=== PATIENT | male | born 1935 | race Caucasian/White ===

== ENCOUNTER 2016-12-12 14:55 | Outpatient (CLI) | payer MEDICARE, OTHER | END 2016-12-12 14:56 | disposition home or self-care (01) | DX: G90.9 Disorder of the autonomic nervous system, unspecified (principal) ==

== ENCOUNTER 2017-06-30 13:50 | Outpatient (CLI) | payer MEDICARE, OTHER | END 2017-06-30 13:51 | disposition EMS.NT | LOC: EMS 13:50 | PROVIDERS: ATTEND Surgery | DX: R53.83 Other fatigue (principal) ==

== ENCOUNTER 2018-01-05 13:53 | Outpatient (CLI) | payer MEDICARE, OTHER ==
--- NOTE | 2018-01-08 10:31 | Ultrasound Report ---
RIGHT LEG VENOUS DUPLEX: 01/05/2018 CLINICAL INDICATION: Edema. TECHNIQUE: Real-time sonographic vascular imaging was performed by the billing clerk through the right lower extremity utilizing both color flow and Doppler spectral analysis. Multiple food service sales representatives static images were saved for review. FINDINGS: A right lower extremity venous sonogram is performed revealing the common femoral, superficial femoral, profunda femoris, and popliteal veins to be adequately visualized without intraluminal defects. There is normal venous compression, augmentation, phasicity, and spontaneity of venous flow. In the calf, the visualized more cephalad portions of posterior tibial and peroneal veins are grossly compressible, without filling defects. IMPRESSION: NO EVIDENCE OF DEEP VENOUS THROMBOSIS. TD: 01/05/2018 17:59
== END 2018-01-05 13:54 | disposition home or self-care (01) ==
LOC: DI 13:53
PROVIDERS: ATTEND Internal Medicine
DX: R60.9 Edema, unspecified (principal)

== ENCOUNTER 2019-02-21 10:46 | Outpatient (CLI) | payer MEDICARE, OTHER ==
[2019-02-21 11:40] LABS: BASOPHILS # (AUTO) 0.1 10^3/uL (0.0-0.1); BASOPHILS % (AUTO) 0.9 %; EOSINOPHILS # (AUTO) 0.5 10^3/uL (0.0-0.7); EOSINOPHILS % (AUTO) 6.4 %; HGB - HEMOGLOBIN 13.9 g/dL (14.0-18.0); LYMPHOCYTES # (AUTO) 1.6 10^3/uL (1.5-3.5); LYMPHOCYTES % (AUTO) 18.9 %; MEAN CORPUSCULAR HEMOGLOBIN 31.4 pg (27.0-31.0); MEAN CORPUSCULAR HGB CONC 34.3 g/dL (32.0-36.0); MEAN CORPUSCULAR VOLUME 91.5 fL (80.0-94.0); MONOCYTES # (AUTO) 1.2 10^3/uL (0.0-1.0); MONOCYTES % (AUTO) 14.7 %; NEUTROPHILS % (AUTO) 59.1 %; PLT - PLATELET COUNT 158 10^3/uL (130-450); RED BLOOD COUNT 4.43 10^6/uL (4.70-6.10); WHITE BLOOD COUNT 8.4 x10^3/uL (4.8-10.8)
[2019-02-21 12:04] LABS: ALBUMIN/GLOBULIN RATIO 1.3 (1.0-2.2); ALKALINE PHOSPHATASE 80 IU/L (42-121); ALT ALANINE AMINOTRANSFERASE 13 IU/L (10-60); AST ASPARTATE AMINOTRANSFERASE 19 IU/L (10-42); BILIRUBIN,TOTAL 0.9 mg/dL (0.2-1.0); BUN - BLOOD UREA NITROGEN 29 mg/dL (6-20); CARBON DIOXIDE - CO2 24 mmol/L (21-32); CHLORIDE 105 mmol/L (101-111); CHOL/HDL RATIO 2.7 (<5.0); CHOLESTEROL 159 mg/dL; CREATININE 0.9 mg/dL (0.6-1.2); GFR - MDRD 81 (>89); GLUCOSE 115 mg/dL (70-100); HDL CHOLESTEROL 60 mg/dL; LDL CHOLESTEROL,CALCULATED 87 mg/dL; LDL/HDL RATIO 1.5 (<3.6); SODIUM 140 mmol/L (135-145); TOTAL PROTEIN 7.2 g/dL (6.7-8.2); VLDL CHOLESTEROL 12 mg/dL
[2019-02-21 13:05] LABS: BILIRUBIN,URINE NEGATIVE (NEGATIVE); GLUCOSE, URINE (UA) NEGATIVE (NEGATIVE); KETONES,URINE (UA) NEGATIVE (NEGATIVE); LEUKOCYTE ESTERASE, URINE NEGATIVE (NEGATIVE); NITRITE,URINE NEGATIVE (NEGATIVE); OCCULT BLOOD,URINE NEGATIVE (NEGATIVE); PROTEIN,URINE NEGATIVE (NEGATIVE); UROBILINOGEN,URINE 0.2 (NORMAL) E.U./dL (NORMAL)
[2019-02-21 13:07] LABS: CLARITY,URINE CLEAR (CLEAR)
[2019-02-22 19:43] LABS: HB2 TOTAL 15.9 g/dL; HEMOGLOBIN A1C 0.59 g/dL; HEMOGLOBIN A1C % 5.5 % (4.6-6.2)
== END 2019-02-21 10:47 | disposition home or self-care (01) ==
LOC: LAB 10:46
PROVIDERS: ATTEND Internal Medicine
DX: R60.9 Edema, unspecified (principal); R32 Unspecified urinary incontinence; I10 Essential (primary) hypertension; R73.01 Impaired fasting glucose; Z13.6 Encounter for screening for cardiovascular disorders; Z79.899 Other long term (current) drug therapy; J44.9 Chronic obstructive pulmonary disease, unspecified; R73.9 Hyperglycemia, unspecified; N40.0 Benign prostatic hyperplasia without lower urinary tract symptoms; R06.09 Other forms of dyspnea
CPT/HCPCS: 36415; 80053; 80061; 81001; 81003; 81599; 83036; 83721; 83880; 84153; 84443; 85025; 87086

== ENCOUNTER 2019-09-26 16:35 | Outpatient (CLI) | payer MEDICARE, OTHER ==
--- NOTE | 2019-09-26 20:31 | Ultrasound Report ---
Reason: TESTICULAR SWELLING Procedure Date: 09/26/2019 Accession Number: [id number] / [id number] Procedure: US - Testicle CPT Code: Final Report FULL RESULT: EXAM: SCROTAL ULTRASOUND EXAM DATE: 09/26/2019 07:22 PM. CLINICAL HISTORY: TESTICULAR SWELLING. COMPARISON: None available. TECHNIQUE: Real-time scanning was performed with static images obtained. Color-flow images were utilized. FINDINGS: Right: Testis: 3.9 x 3.0 x 2.8 cm. Normal size . Somewhat heterogeneous echotexture. No mass or calcification. Increased intratesticular blood flow. Epididymis: 0.7 x 0.9 x 0.8 cm. Increased in size and heterogeneous in appearance. Hyperemic on color Doppler. Nonspecific echogenic foci near the epididymal tail. Nonspecific small hypoechoic, nonvascular collection near the epididymal tail. Hydrocele: Small/moderate. Varicocele: None. Left: Testis: 4.6 x 2.2 x 2.2 cm. Normal size . Somewhat heterogeneous echotexture. No mass, calcification, or abnormal blood flow. Epididymis: 0.8 x 1.1 x 0.8 cm. Normal size and echotexture. No mass or abnormal blood flow. Simple appearing cyst at the epididymal head measuring 4 x 4 x 4 mm. Hydrocele: Small. Varicocele: None. IMPRESSION: No evidence of testicular torsion. Findings of infectious/inflammatory right epididymoorchitis with a small/moderate right hydrocele. Nonspecific heterogeneous hypoechoic collection near the right epididymal tail. A small intraglandular abscess is not entirely excluded. CAROL ANNA The call report notification system was initiated by Dr. Abad Gottlieb at 08:17 PM on 09/26/2019. The above call report findings were discussed with Thania Dubose by Dr. Abad Gottlieb at 08:31 PM on 09/26/2019.
== END 2019-09-26 16:36 | disposition home or self-care (01) ==
LOC: DI 16:35
PROVIDERS: ATTEND Internal Medicine
DX: N45.3 Epididymo-orchitis (principal); N43.3 Hydrocele, unspecified
CPT/HCPCS: 76870

== ENCOUNTER 2019-10-08 03:17 | Outpatient (CLI) | payer MEDICARE, OTHER | END 2019-10-08 03:18 | disposition EMS.NT | LOC: EMS 03:17 | PROVIDERS: ATTEND Surgery | DX: R53.1 Weakness (principal) ==

== ENCOUNTER 2019-10-17 11:06 | Outpatient (CLI) | payer MEDICARE, OTHER ==
--- NOTE | 2019-10-17 12:51 | XRAY Report ---
Reason: [id number] Procedure Date: 10/17/2019 Accession Number: [id number] / [id number] Procedure: XRS - Chest 1 View X-Ray CPT Code: 56996 Final Report FULL RESULT: EXAM: CHEST RADIOGRAPHY EXAM DATE: 10/17/2019 12:09 PM. CLINICAL HISTORY: Swallowed a hearing aid. COMPARISON: XR CHEST PA AND LAT 06/05/2009 1:54 PM. TECHNIQUE: 1 view. FINDINGS: Lungs/Pleura: Bronchial wall thickening is noted. Subtle reticulonodular densities are noted in the right upper lobe. No focal consolidation, mass, effusion or pneumothorax. Mediastinum: Within exam limitations, the cardiomediastinal contour is normal. Other: No unexpected radiopaque foreign bodies. IMPRESSION: 1. Subtle reticulonodular opacity is noted in the right upper lobe. Findings are similar to the prior radiograph performed 06/05/2009. 2. No acute pulmonary process. 3. No unexpected radiopaque foreign bodies. RADIA
--- NOTE | 2019-10-17 12:58 | XRAY Report ---
Reason: SWALLOWED FOREIGN BODY Procedure Date: 10/17/2019 Accession Number: [id number] / [id number] Procedure: XRS - Abdomen 1 View X-Ray CPT Code: 51782 Final Report FULL RESULT: EXAM: ABDOMEN RADIOGRAPHY EXAM DATE: 10/17/2019 12:09 PM. CLINICAL HISTORY: Swallowed foreign body. COMPARISON: CHEST 1 VIEW 10/17/2019 12:19 PM. TECHNIQUE: 1 view. FINDINGS: Bowel Gas Pattern: Moderate amount of stool in the colon. No dilated small bowel or air-fluid level. Other: [place]leaf metallic device in the right upper quadrant may represent a foreign body. Zipper projects over the right acetabulum. Phleboliths are present in the pelvis. IMPRESSION: 1. Nonobstructive bowel gas pattern. 2. Moderate amount of stool in the colon. 3. Probable foreign body in the right upper quadrant may be in the small bowel. RADIA
== END 2019-10-17 11:07 | disposition home or self-care (01) ==
LOC: DI.S 11:06
PROVIDERS: ATTEND Internal Medicine
DX: T18.9XXA Foreign body of alimentary tract, part unspecified, initial encounter (principal)
CPT/HCPCS: 71045; 74018

== ENCOUNTER 2020-11-26 13:50 | Outpatient (CLI) | payer MEDICARE, OTHER | END 2020-11-26 13:51 | disposition EMS.NT | LOC: EMS 13:50 | DX: M25.512 Pain in left shoulder (principal); R07.9 Chest pain, unspecified ==

== ENCOUNTER 2021-03-18 10:34 | Outpatient (CLI) | payer MEDICARE, OTHER ==
[2021-03-18 14:47] LABS: BASOPHILS % (AUTO) 1.3 %; EOSINOPHILS % (AUTO) 23.9 %; HCT - HEMATOCRIT 43.2 % (42.0-52.0); HGB - HEMOGLOBIN 14.4 g/dL (14.0-18.0); LYMPHOCYTES % (AUTO) 19.8 %; MEAN CORPUSCULAR HGB CONC 33.3 g/dL (32.0-36.0); MEAN CORPUSCULAR VOLUME 93.1 fL (80.0-94.0); MEAN PLATELET VOLUME 9.6 fL (7.4-11.4); MONOCYTES % (AUTO) 11.4 %; NEUTROPHILS % (AUTO) 43.3 %; PLT - PLATELET COUNT 197 10^3/uL (130-450); RED BLOOD COUNT 4.64 10^6/uL (4.70-6.10); RED CELL DISTRIBUTION WIDTH 12.8 % (12.0-15.0); SLIDE REVIEW? Indicated; WHITE BLOOD COUNT 6.9 x10^3/uL (4.8-10.8)
[2021-03-18 15:17] LABS: THYROID STIMULATING HORMONE 1.65 uIU/mL (0.34-5.60)
[2021-03-18 15:19] LABS: ALBUMIN/GLOBULIN RATIO 1.3 (1.0-2.2); ALKALINE PHOSPHATASE 79 IU/L (42-121); ALT ALANINE AMINOTRANSFERASE 13 IU/L (10-60); AST ASPARTATE AMINOTRANSFERASE 22 IU/L (10-42); BILIRUBIN,TOTAL 0.9 mg/dL (0.2-1.0); BUN - BLOOD UREA NITROGEN 37 mg/dL (6-20); CALCIUM 9.2 mg/dL (8.5-10.3); CARBON DIOXIDE - CO2 28 mmol/L (21-32); CHLORIDE 101 mmol/L (101-111); CHOL/HDL RATIO 3.2 (<5.0); CHOLESTEROL 158 mg/dL; CREATININE 1.1 mg/dL (0.6-1.2); GFR - MDRD 64 (>89); GLUCOSE 104 mg/dL (70-100); HDL CHOLESTEROL 50 mg/dL; LDL CHOLESTEROL,CALCULATED 96 mg/dL; LDL/HDL RATIO 1.9 (<3.6); POTASSIUM 4.2 mmol/L (3.5-5.0); SODIUM 137 mmol/L (135-145); TOTAL PROTEIN 7.2 g/dL (6.7-8.2); TRIGLYCERIDES 62 mg/dL; VLDL CHOLESTEROL 12 mg/dL
[2021-03-18 15:21] LABS: FERRITIN 53.1 ng/mL (23.9-336.2)
[2021-03-18 15:52] LABS: ABNORMAL LYMPHS % (MANUAL) 0 %; BAND NEUTROPHILS % (MANUAL) 0 %
[2021-03-18 15:55] LABS: BASOPHILS # (MANUAL) 0.1 10^3/uL (0-0.1); BASOPHILS % (MANUAL) 1 %; DIFFERENTIAL COMMENT MANUAL DIFFERENTIAL; EOSINOPHILS # (MANUAL) 1.6 10^3/uL (0-0.7); LYMPHOCYTES # (MANUAL) 1.2 10^3/uL (1.5-3.5); LYMPHOCYTES % (MANUAL) 17 %; MONOCYTES # (MANUAL) 0.8 10^3/uL (0.0-1.0); NEUTROPHILS # (MANUAL) 3.2 10^3/uL (1.5-6.6); PLATELET ESTIMATE, MANUAL NORMAL (130-450,000) (NORMAL); PLATELET MORPHOLOGY NORMAL APPEARANCE (NORMAL); RBC MORPHOLOGY (MULTIPLE) NORMAL APPEARANCE (NORMAL); REACTIVE LYMPHS % (MANUAL) 1 %; WBC MORPHOLOGY (MULTIPLE) NORMAL APPEARANCE (NORMAL)
[2021-03-18 19:57] LABS: BILIRUBIN,URINE NEGATIVE (NEGATIVE); GLUCOSE, URINE (UA) NEGATIVE (NEGATIVE); KETONES,URINE (UA) NEGATIVE (NEGATIVE); LEUKOCYTE ESTERASE, URINE NEGATIVE (NEGATIVE); NITRITE,URINE NEGATIVE (NEGATIVE); OCCULT BLOOD,URINE NEGATIVE (NEGATIVE); PH,URINE 5.5 PH (5.0-7.5); PROTEIN,URINE NEGATIVE (NEGATIVE); UROBILINOGEN,URINE 0.2 (NORMAL) E.U./dL (NORMAL)
[2021-03-18 20:01] LABS: CLARITY,URINE CLEAR (CLEAR)
[2021-03-18 20:03] LABS: ESTIMATED AVERAGE GLUCOSE 108 mg/dL (70-100); HEMOGLOBIN A1c% 5.4 % (4.27-6.07)
[2021-03-18 20:08] LABS: BACTERIA,URINE Rare /HPF (None Seen); RBC,URINE None Seen /HPF (0-5); SQUAMOUS EPITHELIAL CELL,UR NONE SEEN (<= Few); WBC,URINE 0-3 /HPF (0-3)
== END 2021-03-18 10:35 | disposition home or self-care (01) ==
LOC: LAB.S 10:34
PROVIDERS: ATTEND Internal Medicine
DX: E78.5 Hyperlipidemia, unspecified (principal); D64.9 Anemia, unspecified; R80.9 Proteinuria, unspecified; R60.9 Edema, unspecified; R06.00 Dyspnea, unspecified; N40.0 Benign prostatic hyperplasia without lower urinary tract symptoms; Z13.6 Encounter for screening for cardiovascular disorders; Z79.899 Other long term (current) drug therapy; J44.9 Chronic obstructive pulmonary disease, unspecified; R32 Unspecified urinary incontinence; G25.0 Essential tremor
CPT/HCPCS: 36415; 80053; 80061; 81001; 82728; 83036; 83721; 83880; 84153; 84443; 85025; 86787; 87086

== ENCOUNTER 2022-08-18 23:03 | Outpatient (CLI) | payer MEDICARE, OTHER | END 2022-08-18 23:59 | disposition EMS.NT | LOC: EMS 23:03 | DX: R53.1 Weakness (principal) ==

== ENCOUNTER 2022-10-24 08:00 | Outpatient (CLI) | payer MEDICARE, OTHER | END 2022-10-24 23:59 | disposition home or self-care (01) | LOC: LAB 08:00 | PROVIDERS: ATTEND Registered Nurse | DX: R30.0 Dysuria (principal) | CPT/HCPCS: 87077; 87086; 87181 ==

== ENCOUNTER 2023-11-15 11:27 | Outpatient (CLI) | payer MEDICARE, OTHER ==
[2023-11-15 15:06] LABS: BASOPHILS # (AUTO) 0.1 10^3/uL (0.0-0.1); BASOPHILS % (AUTO) 0.6 %; EOSINOPHILS # (AUTO) 0.5 10^3/uL (0.0-0.7); EOSINOPHILS % (AUTO) 5.3 %; HCT - HEMATOCRIT 42.5 % (42.0-52.0); HGB - HEMOGLOBIN 13.1 g/dL (14.0-18.0); LYMPHOCYTES # (AUTO) 1.2 10^3/uL (1.5-3.5); LYMPHOCYTES % (AUTO) 12.4 %; MEAN CORPUSCULAR HEMOGLOBIN 28.9 pg (27.0-31.0); MEAN CORPUSCULAR HGB CONC 30.8 g/dL (32.0-36.0); MEAN CORPUSCULAR VOLUME 93.8 fL (80.0-94.0); MEAN PLATELET VOLUME 9.6 fL (7.4-11.4); MONOCYTES # (AUTO) 0.9 10^3/uL (0.0-1.0); MONOCYTES % (AUTO) 9.9 %; NEUTROPHILS # (AUTO) 6.7 10^3/uL (1.5-6.6); NEUTROPHILS % (AUTO) 71.5 %; PLT - PLATELET COUNT 248 10^3/uL (130-450); RED BLOOD COUNT 4.53 10^6/uL (4.70-6.10); RED CELL DISTRIBUTION WIDTH 14.3 % (12.0-15.0); WHITE BLOOD COUNT 9.4 x10^3/uL (4.8-10.8)
[2023-11-15 15:43] LABS: THYROID STIMULATING HORMONE 1.52 uIU/mL (0.34-5.60)
[2023-11-15 15:44] LABS: BILIRUBIN,TOTAL 0.6 mg/dL (0.2-1.0); CALCIUM 9.8 mg/dL (8.5-10.3); CREATININE 1.1 mg/dL (0.6-1.3); POTASSIUM 4.1 mmol/L (3.5-4.5)
== END 2023-11-15 11:28 | disposition home or self-care (01) ==
LOC: LAB.S 11:27
PROVIDERS: ATTEND Nurse Practitioner
DX: R13.10 Dysphagia, unspecified (principal)
CPT/HCPCS: 36415; 80053; 84443; 85025

== ENCOUNTER 2024-01-21 20:28 | Outpatient (CLI) | payer MEDICARE, OTHER | END 2024-01-21 23:59 | disposition critical access hospital (66) | LOC: EMS 20:28 | DX: R55 Syncope and collapse (principal); M54.9 Dorsalgia, unspecified; R53.1 Weakness | CPT/HCPCS: A0425; A0429 ==

== ENCOUNTER 2024-01-21 21:09 | Emergency (ER) | payer MEDICARE, OTHER ==
--- NOTE | 2024-01-21 21:53 | ED Physician Documentation ---
PD HPI SYNCOPE - Stated complaint Stated Complaint: SYNCOPE - Chief complaint Chief Complaint: Neuro - History obtained from History obtained from: Patient - Additional information Additional information: HPI from patient. Patient presents after a syncopal episode that occurred early this a.m. Patient says he was in bed and, at approximately 3 AM this morning, he got out of bed and went to the kitchen to fix himself a snack. He does not recall any prodromal symptoms before waking up on the floor of the kitchen. He says he felt (generalized) weakness extent that he was unable to get back up. He says it was approximately 7 AM when his woke up and found him on the floor. She helped him back into bed. I asked patient why he presents to the emergency department this time for an event that happened so very many hours ago; he says there was "a miscommunication", and explains that his was under the impression that he (the patient) did not want to go to the emergency department but after discussing it this evening, he says that he did indeed want to go and thus presents at this time for evaluation of the syncopal episode. He denies any new pain; he has chronic pain in many areas, particularly his lower back, neck. None of this pain is new or worse than his baseline. He denies headache, he denies acute visual changes, weakness, numbness. He denies chest pain, shortness of breath. He has not had syncopal episodes in the past. Review of Systems Cardiac: reports: Reviewed and negative Respiratory: reports: Reviewed and negative GI: reports: Reviewed and negative PD PAST MEDICAL HISTORY - Past Medical History Past Medical History: Yes - Present Medications Home Medications: Ambulatory Orders Medication Instructions Recorded Confirmed Azithromycin [Zithromax] 250 mg PO DAILY #4 tablet 01/22/24 - Allergies Allergies/Adverse Reactions: Allergies Allergy/AdvReac Type Severity Reaction Status Date / Time No Known Drug Allergies Allergy Verified 01/21/24 21:17 PD ED PE NORMAL - Vitals Vital signs reviewed: Yes - General General: Alert and oriented X 3, No acute distress, Well developed/nourished - HEENT HEENT: Atraumatic, PERRL, EOMI, Moist mucous membranes - Neck Neck: No bony TTP, No JVD - Cardiac Cardiac: RRR (frequent extra beats but baseline RRR), No murmur - Respiratory Respiratory: No respiratory distress, Clear bilaterally - Abdomen Abdomen: Soft, Non tender - Back Back: No CVA TTP, No spinal TTP - Derm Derm: Normal color, Warm and dry - Extremities Extremities: No deformity, No tenderness to palpate, Normal ROM s pain - Neuro Neuro: Alert and oriented X 3, 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, No motor deficit, No sensory deficit, Normal speech Eye Opening: Spontaneous Motor: Obeys Commands Verbal: Oriented GCS Score: 15 - Psych Psych: Normal mood, Normal affect Results - Vitals Vitals: Vital Signs - 24 hr 01/21/24 01/21/24 01/22/24 21:15 22:30 02:23 Temperature 37 C 37.2 C Heart Rate 90 95 111 H Respiratory 18 18 18 Rate Blood Pressure 167/84 H 170/108 H 167/106 H O2 Saturation 100 95 96 01/22/24 03:30 Temperature 36.9 C Heart Rate 113 H Respiratory 18 Rate Blood Pressure 180/95 H O2 Saturation 98 Oxygen O2 Source Room air - EKG (time done) No standard instances EKG releavant findings:: EKG personally interpreted by author of this note. Relevant findings are: Rate: Rate (enter#) (92) Rhythm: NSR [place]: Normal Intervals: Normal CA, Prolonged QT QRS: LVH Ischemia: T wave inversion (III, aVF) Other comments: Other comments (PACs, PVC) #2 EKG releavant findings:: EKG personally interpreted by author of this note. Relevant findings are: Rate: Rate (enter#) (111) Rhythm: Sinus tachycardia [place]: Normal Intervals: Normal CA, Prolonged QT QRS: LVH Ischemia: Normal ST segments, T wave inversion (III, aVF) - Labs Labs: Laboratory Tests 01/21/24 01/21/24 01/22/24 22:36 22:36 00:33 WBC 8.6 RBC 4.54 L Hgb 13.3 L Hct 41.0 L MCV 90.3 MCH 29.3 MCHC 32.4 RDW 13.5 Plt Count 199 MPV 8.9 Neut # (Auto) 6.2 Lymph # (Auto) 1.0 L [place] # (Auto) 1.0 Eos # (Auto) 0.4 Baso # (Auto) 0.1 Absolute Nucleated RBC 0.00 Nucleated RBC % 0.0 Sodium 135 Potassium 4.4 Chloride 101 Carbon Dioxide 26 Anion Gap 8.0 BUN 26 H Creatinine 1.0 Estimated GFR (MDRD) 71 L Glucose 118 H Calcium 10.2 Total Bilirubin 1.1 H AST 21 ALT 10 Alkaline Phosphatase 94 Total Creatine Kinase 175 Troponin I High Sens 31.9 H* 28.9 H* Total Protein 8.1 Albumin 3.9 Globulin 4.2 Albumin/Globulin Ratio 0.9 L Lipase 18 - Rads (name of study) CTH Relevant Findings:: Prelim report reviewed, See rad report CXR Relevant Findings:: Prelim report reviewed, See rad report PD Medical Decision Making - ED course Complexity details: reviewed results, re-evaluated patient, considered differential, d/w patient ED course: No concerning findings on CBC, ER abdominal panel. Mildly elevated hs-cTn (31.9), but two-hour repeat shows decrease to 28.9. Initial and repeat EKGs are without acute/concerning findings. Unremarkable CTH. CXR shows RLL infiltrate; although he is not describing symptoms of pneumonia nor are blood tests (normal WBC) or vital signs (normal pulse ox, respiratory rate) suggestive of pneumonia, the finding on xray is significant and thus he is given 1 gram IV rocephin and 500mg PO zithromax to cover bacterial pneumonia. I am also e-prescribing four more days of azithromycin. Results d/w patient, return precautions reviewed. I instructed him to seek follow up with his primary care provider, ideally this week, for reevaluation. Departure - Departure Disposition: 01 Home, Self Care Clinical Impression: Syncope Qualifiers: Syncope type: unspecified Qualified Code(s): R55 - Syncope and collapse Condition: Good Instructions: ED Pneumonia Adult, ED Fainting Unkn Cause Follow-Up: Thania Dubose MD [Primary Care Provider] - Prescriptions: Azithromycin [Zithromax] 250 mg PO DAILY #4 tablet Comments: Despite a lack of signs/symptoms to suggest pneumonia, your chest x-ray is consistent with right-sided pneumonia. For this, you were given both an IV and an oral antibiotic in the emergency department, and I am providing you with a prescription for 4 more days of the oral antibiotic. The cause of your syncope (passing out) is not apparent at this time. There are no findings on tonight's test to suggest what caused this. It is difficult to tie in with pneumonia (in other words, the pneumonia would seem coincident rather than causative). It is very important that you contact your primary care provider when their office opens later this morning to arrange for the next available appointment for reevaluation/follow-up. You might need further testing even if you are not feeling improved (such as an ultrasound of your heart (echocardiogram) and/or ongoing outpatient cardiac monitoring). Discharge Date/Time: 01/22/24 04:44
[2024-01-21 22:51] LABS: BASOPHILS # (AUTO) 0.1 10^3/uL (0.0-0.1); BASOPHILS % (AUTO) 0.6 %; EOSINOPHILS # (AUTO) 0.4 10^3/uL (0.0-0.7); EOSINOPHILS % (AUTO) 4.4 %; HGB - HEMOGLOBIN 13.3 g/dL (14.0-18.0); LYMPHOCYTES % (AUTO) 11.2 %; MEAN CORPUSCULAR HEMOGLOBIN 29.3 pg (27.0-31.0); MEAN CORPUSCULAR HGB CONC 32.4 g/dL (32.0-36.0); MEAN CORPUSCULAR VOLUME 90.3 fL (80.0-94.0); MEAN PLATELET VOLUME 8.9 fL (7.4-11.4); MONOCYTES % (AUTO) 11.4 %; NEUTROPHILS # (AUTO) 6.2 10^3/uL (1.5-6.6); PLT - PLATELET COUNT 199 10^3/uL (130-450); RED BLOOD COUNT 4.54 10^6/uL (4.70-6.10); RED CELL DISTRIBUTION WIDTH 13.5 % (12.0-15.0); WHITE BLOOD COUNT 8.6 x10^3/uL (4.8-10.8)
[2024-01-21 22:59] LABS: ALBUMIN 3.9 g/dL (3.2-5.5); ALBUMIN/GLOBULIN RATIO 0.9 (1.0-2.2); BILIRUBIN,TOTAL 1.1 mg/dL (0.2-1.0); CALCIUM 10.2 mg/dL (8.5-10.3); POTASSIUM 4.4 mmol/L (3.5-4.5); TOTAL PROTEIN 8.1 g/dL (6.4-8.9)
[2024-01-21 23:09] LABS: TROPONIN I HIGH SENSITIVITY 31.9 ng/L (2.3-19.7)
--- NOTE | 2024-01-21 23:46 | CT Report ---
PROCEDURE: Head WO INDICATIONS: syncope TECHNIQUE: Noncontrast 4.5 mm thick angled axial sections acquired from the foramen magnum to the vertex. For r adiation dose reduction, the following was used: automated exposure control, adjustment of mA and/or kV according to patient size. COMPARISON: Brain MRI 06/18/2015. FINDINGS: Image quality: Excellent. CSF spaces: Basal cisterns are patent. No extra-axial fluid collections. Ventricles are normal in size and shape. Brain: No midline shift. No intracranial masses or hemorrhage. No area of hypodensity in a vascular distribution to suggest acute infarction. 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 There is periventricular hypodensity consistent with chronic microvascular ischemic disease. Age-rel ated parenchymal loss. Skull and face: Calvarium and visualized facial bones are intact, without suspicious lesions. Sinuses: Opacification of the left maxillary sinus, left frontal sinus, several left ethmoid air cell s. Mastoids are clear. Prior right mastoidectomy. IMPRESSION: No acute intracranial pathology. Left sinusitis. Reviewed by: Trey Negrete MD on 01/21/2024 11:45 PM PDT Approved by: Trey Negrete MD on 01/21/2024 11:45 PM PDT Station ID: [id number]
--- NOTE | 2024-01-21 23:48 | XRAY Report ---
PROCEDURE: Chest 2V INDICATIONS: syncope TECHNIQUE: 2 views of the chest were acquired. COMPARISON: CXR 10/17/2019. FINDINGS: Surgical changes and devices: None. Lungs and pleura: No pleural effusions or pneumothorax. Right lower lobe consolidation. Mediastinum: Mediastinal contours appear normal. Heart size is normal. Bones and chest wall: No suspicious bony lesions. Overlying soft tissues appear unremarkable. IMPRESSION: Right lower lobe consolidation. Suspect pneumonia. Recommend follow-up to resolution. Reviewed by: Trey Negrete MD on 01/21/2024 11:46 PM PDT Approved by: Trey Negrete MD on 01/21/2024 11:46 PM PDT Station ID: [id number]
[2024-01-22] MEDS: SODIUM CHLORIDE 0.9% 1,000 ML IV STA (02:15)
[2024-01-22] MEDS: AZITHROMYCIN 250 MG TABLET PO STA (02:15)
[2024-01-22] MEDS: cefTRIAXone 1 GM VIAL IVP STA (02:17)
[2024-01-22 04:49] VITALS: BP 180/95; O2SAT 98
== END 2024-01-22 04:44 | disposition home or self-care (01) ==
LOC: EDUNIT# → ED 21:09
DX: R55 Syncope and collapse (principal); R91.8 Other nonspecific abnormal finding of lung field
CPT/HCPCS: 36415; 70450; 71046; 80053; 82550; 83690; 84484; 85025; 93005; 96374; 99284; A9270

== ENCOUNTER 2024-02-26 13:44 | Outpatient (CLI) | payer MEDICARE, OTHER ==
--- NOTE | 2024-02-26 16:22 | XRAY Report ---
PROCEDURE: Chest 2V INDICATIONS: COPD TECHNIQUE: 2 views of the chest were acquired. COMPARISON: Chest x-ray 01/21/2024 FINDINGS: Surgical changes and devices: None. Lungs and pleura: There is blunting of the right costophrenic angle. Previous infiltrate is no longe r visualized. Lungs are hyperexpanded. Mediastinum: Mediastinal contours appear normal. Heart size is normal. Bones and chest wall: No suspicious bony lesions. Overlying soft tissues appear unremarkable. IMPRESSION: Right costophrenic angle blunting possibly related to effusion versus scarring. Reviewed by: Nathaly Weathers MD on 02/26/2024 4:21 PM PDT Approved by: Nathaly Weathers MD on 02/26/2024 4:21 PM PDT Station ID: [id number]
== END 2024-02-26 13:45 | disposition home or self-care (01) ==
LOC: DI.S 13:44
PROVIDERS: ATTEND Internal Medicine
DX: J44.9 Chronic obstructive pulmonary disease, unspecified (principal)

== ENCOUNTER 2024-04-02 12:48 | Outpatient (CLI) | payer MEDICARE, OTHER | END 2024-04-02 12:49 | disposition home or self-care (01) | LOC: DI 12:48 | PROVIDERS: ATTEND Internal Medicine | DX: R55 Syncope and collapse (principal); I51.7 Cardiomegaly | CPT/HCPCS: 93307 ==